=== PATIENT | male | born 1985 | race Caucasian/White ===

== ENCOUNTER 2017-01-03 11:29 | Emergency (ER) | payer SELFPAY ==
[~2017-01-03] VITALS: Ht 167.6 cm; Wt 61.2 kg
[2017-01-03 11:30] VITALS: BP_SYST 139
[2017-01-03] MEDS ORDERED: BACITRACIN 1 GM OINT TP ONE ×2 (12:00→12:08)
[2017-01-03 12:25] VITALS: BP_SYST 139
== END 2017-01-03 12:24 | disposition home or self-care (01) ==
LOC: SED 11:29
DX: T21.22XA Burn of second degree of abdominal wall, initial encounter (principal); T24.212A Burn of second degree of left thigh, initial encounter; T24.211A Burn of second degree of right thigh, initial encounter; X16.XXXA Contact with hot heating appliances, radiators and pipes, initial encounter; Y93.89 Activity, other specified; Y92.89 Other specified places as the place of occurrence of the external cause; Y99.8 Other external cause status
CPT/HCPCS: 99285

== ENCOUNTER 2017-03-24 19:30 | Emergency (ER) | payer OTHER ==
[~2017-03-24] VITALS: Ht 167.6 cm; Wt 59.0 kg
[2017-03-24 19:35] VITALS: BP_SYST 142
[2017-03-24 20:10] VITALS: BP_SYST 142
== END 2017-03-24 20:10 | disposition home or self-care (01) ==
LOC: SED 19:30
DX: S43.102A Unspecified dislocation of left acromioclavicular joint, initial encounter (principal); X58.XXXA Exposure to other specified factors, initial encounter; Y93.89 Activity, other specified; Y92.89 Other specified places as the place of occurrence of the external cause; Y99.8 Other external cause status
CPT/HCPCS: 73030; 99284

== ENCOUNTER 2017-07-25 04:02 | Observation (INO) | payer OTHER ==
[~2017-07-25] VITALS: Ht 170.2 cm; Wt 59.0 kg
[2017-07-25 04:06] VITALS: BP_SYST 148
[2017-07-25] MEDS ORDERED: NACL 0.9% 1,000 ML IV ONE ×3 (04:25→08:00)
[2017-07-25] MEDS ORDERED: KETOROLAC TROMETHAMINE 30 MG VIAL IVP ONE (04:30)
[2017-07-25] MEDS ORDERED: ONDANSETRON HCL 4 MG/2 ML VIAL IVP ONE (04:30)
[2017-07-25 04:41] LABS: BASOPHILS % (AUTO) 0.3 % (0.0-2.0); EOSINOPHILS % (AUTO) 0.5 % (0.0-4.0); HEMATOCRIT 46.4 % (36-54); HEMOGLOBIN 15.1 g/dL (14.0-18.0); LYMPHOCYTES # (AUTO) 1.2 K/uL (1.0-5.5); LYMPHOCYTES % (AUTO) 17.2 % (20.5-51.5); MEAN CORPUSCULAR HEMOGLOBIN 28 pg (27-31); MEAN CORPUSCULAR HGB CONC 33 % (32-36); MEAN CORPUSCULAR VOLUME 85 fL (79.0-98.0); MONOCYTES # (AUTO) 0.4 K/uL (0.0-1.0); MONOCYTES % (AUTO) 5.9 % (1.7-9.3); NEUTROPHILS # (AUTO) 5.5 K/uL (1.8-7.7); NEUTROPHILS % (AUTO) 76.1 % (40.0-70.0); PLATELET COUNT (AUTO) 335 K/uL (130-430); RED BLOOD CELL COUNT(AUTO) 5.43 MIL/uL (4.2-6.2); RED CELL DISTRIBUTION WIDTH 13.7 % (9.0-15.0); WHITE BLOOD COUNT (AUTO) 7.1 K/uL (4.8-10.8)
[2017-07-25 04:42] LABS: CREATININE 0.97 mg/dL (0.55-1.30); POTASSIUM 4.4 mmol/L (3.5-5.1)
[2017-07-25 04:46] LABS: ALBUMIN 4.1 g/dL (3.4-4.8); TOTAL BILIRUBIN 0.5 mg/dL (0.0-1.0)
[2017-07-25 07:04] VITALS: BP_SYST 139
[2017-07-25] MEDS ORDERED: NACL 0.9% 1,000 ML IV SCH (07:55)
[2017-07-25 08:00] VITALS: BP_SYST 148
[2017-07-25] MEDS ORDERED: ONDANSETRON HCL 4 MG/2 ML VIAL IVP PRN (08:00)
[2017-07-25] MEDS ORDERED: MORPHINE 2 MG/ML INJ. SYRINGE IVP PRN (08:00)
[2017-07-25] MEDS ORDERED: ALBUTEROL SULFATE 0.083% 2.5 MG/3 ML VIAL.NEB INH PRN (08:00)
[2017-07-25] MEDS ORDERED: ACETAMINOPHEN 325 MG TABLET PO PRN (08:00)
[2017-07-25 08:31] LABS: BASOPHILS % (AUTO) 0.2 % (0.0-2.0); EOSINOPHILS % (AUTO) 0.2 % (0.0-4.0); HEMATOCRIT 40.7 % (36-54); HEMOGLOBIN 13.4 g/dL (14.0-18.0); LYMPHOCYTES % (AUTO) 14.5 % (20.5-51.5); MEAN CORPUSCULAR HEMOGLOBIN 28 pg (27-31); MEAN CORPUSCULAR HGB CONC 33 % (32-36); MEAN CORPUSCULAR VOLUME 86 fL (79.0-98.0); MONOCYTES # (AUTO) 0.3 K/uL (0.0-1.0); MONOCYTES % (AUTO) 4.8 % (1.7-9.3); NEUTROPHILS # (AUTO) 5.6 K/uL (1.8-7.7); NEUTROPHILS % (AUTO) 80.3 % (40.0-70.0); PLATELET COUNT (AUTO) 299 K/uL (130-430); RED BLOOD CELL COUNT(AUTO) 4.71 MIL/uL (4.2-6.2); RED CELL DISTRIBUTION WIDTH 13.4 % (9.0-15.0); WHITE BLOOD COUNT (AUTO) 6.9 K/uL (4.8-10.8)
[2017-07-25 08:53] LABS: ALBUMIN 3.4 g/dL (3.4-4.8); CREATININE 0.78 mg/dL (0.55-1.30); POTASSIUM 4.3 mmol/L (3.5-5.1); TOTAL BILIRUBIN 0.4 mg/dL (0.0-1.0)
[2017-07-25] MEDS ORDERED: PANTOPRAZOLE SODIUM 40 MG/VIAL (PROTONIX) IVP SCH (09:00)
[2017-07-25] MEDS ORDERED: BISACODYL 5 MG TABLET.DR (DULCOLAX) PO ONE (09:15)
[2017-07-25] MEDS ORDERED: POLYETHYLENE GLYCOL 3350, 17 GM/ POWD.PACK PO ONE (09:15)
[2017-07-25 09:48] VITALS: BP_SYST 148
[2017-07-25] MEDS ORDERED: MORPHINE 4 MG/ML INJ. SYRINGE IVP PRN (10:00)
[2017-07-25 12:00] VITALS: BP_SYST 135
[2017-07-26] MEDS ORDERED: POLYETHYLENE GLYCOL 3350, 17 GM/ POWD.PACK PO SCH (09:00)
== END 2017-07-25 12:22 | disposition left against medical advice (07) ==
LOC: SED 04:02 → SMU 06:28
PROVIDERS: ADMIT Internal Medicine; ATTEND Internal Medicine
DX: K85.90 Acute pancreatitis without necrosis or infection, unspecified (principal); F17.210 Nicotine dependence, cigarettes, uncomplicated
CPT/HCPCS: 36415; 74018; 74176; 76700; 80053; 80061; 82150; 83690; 85025; 87040; 96361 ×2; 96374; 96375 ×2; 99285; C9113; G0378; G0482; J1885; J2405; J7030; J2270

== ENCOUNTER 2018-05-20 18:39 | Emergency (ER) | payer SELFPAY ==
[~2018-05-20] VITALS: Ht 165.1 cm; Wt 63.5 kg
[2018-05-20 18:50] VITALS: BP_SYST 137
[2018-05-20] MEDS ORDERED: BACITRACIN 1 GM OINT TP ONE (19:30)
[2018-05-20] MEDS ORDERED: LIDOCAINE/EPI 2% 1:100000 20 ML VIAL INJ ONE (19:30)
[2018-05-20 20:25] VITALS: BP_SYST 137
== END 2018-05-20 20:25 | disposition home or self-care (01) ==
LOC: SED 18:39
DX: S01.01XA Laceration without foreign body of scalp, initial encounter (principal); W20.8XXA Other cause of strike by thrown, projected or falling object, initial encounter; Y93.89 Activity, other specified; Y92.89 Other specified places as the place of occurrence of the external cause; Y99.8 Other external cause status
CPT/HCPCS: 99283

== ENCOUNTER 2018-05-28 17:17 | Emergency (ER) | payer SELFPAY ==
[~2018-05-28] VITALS: Ht 170.2 cm; Wt 63.5 kg
[2018-05-28 17:30] VITALS: BP_SYST 144
[2018-05-28 18:15] VITALS: BP_SYST 130
== END 2018-05-28 18:15 | disposition home or self-care (01) ==
LOC: SED 17:17
DX: S01.01XD Laceration without foreign body of scalp, subsequent encounter (principal); W20.8XXD Other cause of strike by thrown, projected or falling object, subsequent encounter
CPT/HCPCS: 99281

== ENCOUNTER 2020-02-07 12:22 | Emergency (ER) | payer MEDICAID ==
[~2020-02-07] VITALS: Ht 167.6 cm; Wt 68.0 kg
[2020-02-07 12:26] VITALS: BP_SYST 110
[2020-02-07] MEDS ORDERED: LIDOCAINE 1% 10 MG/ML, 20 ML MDV INJ ONE (12:45)
[2020-02-07 14:29] VITALS: BP_SYST 110
== END 2020-02-07 14:32 | disposition home or self-care (01) ==
LOC: SED 12:22
DX: S62.522A Displaced fracture of distal phalanx of left thumb, initial encounter for closed fracture (principal); S61.012A Laceration without foreign body of left thumb without damage to nail, initial encounter; W26.8XXA Contact with other sharp object(s), not elsewhere classified, initial encounter; Y93.89 Activity, other specified; Y92.89 Other specified places as the place of occurrence of the external cause; Y99.8 Other external cause status
CPT/HCPCS: 12002; 73140; 99283; J2001

== ENCOUNTER 2020-02-10 11:04 | Emergency (ER) | payer MEDICAID ==
[~2020-02-10] VITALS: Ht 167.6 cm; Wt 63.5 kg
[2020-02-10 11:08] VITALS: BP_SYST 128
--- NOTE | 2020-02-10 12:06 | NUR ---
Pt was seen walking out of waiting room. LWBS at this time.
== END 2020-02-10 12:06 | disposition left against medical advice (07) ==
LOC: SED 11:04
DX: Z48.02 Encounter for removal of sutures (principal); Z53.21 Procedure and treatment not carried out due to patient leaving prior to being seen by health care provider

== ENCOUNTER 2021-04-01 18:11 | Emergency (ER) | payer SELFPAY ==
[~2021-04-01] VITALS: Ht 167.6 cm; Wt 68.0 kg
[2021-04-01 19:00] VITALS: BP_SYST 143
--- NOTE | 2021-04-01 19:06 | NUR ---
PT TO REMAIN IN THE ER LOBBY UNTIL ER BED BECOMES AVAILABLE.
--- NOTE | 2021-04-01 19:19 | NUR ---
Patient to ER bed 3 to gown for evaluation. Side rails up.
--- NOTE | 2021-04-01 19:26 | NUR ---
PT WALKED IN C/O RIGHT ELBOW SWELLING XTODAY WORSENING OVER THE LAST FEW HOURS AFTER ICING IT. PT THINKS HE MAY HAVE SLEPT ON IT WRONG OR GOT BITTEN BY SOMETHING. +SWELLING, +TENDERNESS, -REDNESS, +LIMITED ROM.
[2021-04-01] MEDS ORDERED: KETOROLAC TROMETHAMINE 30 MG VIAL IM ONE (19:45)
--- NOTE | 2021-04-01 19:45 | NUR ---
DR. SANTIAGO AT BEDSIDE FOR MSE
--- NOTE | 2021-04-01 20:00 | NUR ---
PT REFUSING PAIN MEDICATION AT THIS TIME.
--- NOTE | 2021-04-01 20:01 | NUR ---
PT NORI TO RADIOLOGY
--- NOTE | 2021-04-01 20:10 | NUR ---
PT BACK FROM XRAY
--- NOTE | 2021-04-01 20:37 | NUR ---
DR. SANTIAGO AT BEDSIDE
[2021-04-01] MEDS ORDERED: IBUPROFEN 800 MG TABLET PO ONE (21:00)
[2021-04-01] MEDS ORDERED: IBUP-1969 PO (21:23)
[2021-04-01 21:45] VITALS: BP_SYST 143
--- NOTE | 2021-04-01 21:45 | NUR ---
Patient given written and verbal discharge instructions and verbalizes understanding. ER MD discussed with patient the results and treatment provided. Patient in stable condition. ID arm band removed. Rx of MOTRIN given. Patient educated on pain management and to follow up with PMD. Pain Scale 3/10. Opportunity for questions provided and answered. Medication side effect fact sheet provided.
== END 2021-04-01 21:45 | disposition home or self-care (01) ==
LOC: SED 18:11
DX: M70.21 Olecranon bursitis, right elbow (principal); Z79.899 Other long term (current) drug therapy; Y93.89 Activity, other specified
CPT/HCPCS: 73080; 99283; J1885

== ENCOUNTER 2021-06-12 12:07 | Emergency (ER) | payer OTHER ==
[~2021-06-12] VITALS: Ht 167.6 cm; Wt 63.5 kg
[~2021-06-12 12:07] MED LIST: IBUP-1969 PO
[2021-06-12 12:25] VITALS: BP_SYST 132
[2021-06-12] MEDS ORDERED: BACITRACIN 1 GM OINT TP ONE (14:45)
[2021-06-12] MEDS ORDERED: LIDOCAINE/EPI 1% 1:100000 20 ML VIAL INJ ONE ×2 (14:45→14:48)
[2021-06-12 15:29] VITALS: BP_SYST 134
== END 2021-06-12 15:29 | disposition home or self-care (01) ==
LOC: SED 12:07
DX: S81.011A Laceration without foreign body, right knee, initial encounter (principal); V49.49XA Driver injured in collision with other motor vehicles in traffic accident, initial encounter; Y93.89 Activity, other specified; Y92.89 Other specified places as the place of occurrence of the external cause; Y99.8 Other external cause status
CPT/HCPCS: 73560-TC; 99283

== ENCOUNTER 2023-05-05 15:24 | Emergency (ER) | payer SELFPAY ==
[~2023-05-05] VITALS: Ht 162.6 cm; Wt 63.5 kg
[2023-05-05 15:25] VITALS: BP_SYST 115; PULSE 99; RESP 18; TEMP 98.7; O2SAT 100
[2023-05-05] MEDS ORDERED: PENI250T2 PO (18:53)
[2023-05-05] MEDS ORDERED: IBUP800T54 PO (18:53)
== END 2023-05-05 18:47 | disposition home or self-care (01) ==
LOC: SED 15:24
DX: K02.9 Dental caries, unspecified (principal); K08.89 Other specified disorders of teeth and supporting structures; Z79.899 Other long term (current) drug therapy
CPT/HCPCS: 99282

== ENCOUNTER 2023-09-05 07:45 | Emergency (ER) | payer SELFPAY ==
[~2023-09-05] VITALS: Ht 167.6 cm; Wt 63.5 kg
[~2023-09-05 07:45] MED LIST changes: +IBUP800T54 PO; +PENI250T2 PO
[2023-09-05 07:49] VITALS: BP_SYST 129; PULSE 82; RESP 18; TEMP 98.3; O2SAT 98
[2023-09-05] MEDS: FAMOTIDINE 20 MG TABLET PO ONE (08:48)
[2023-09-05] MEDS: predniSONE 20 MG TABLET PO ONE (08:48)
[2023-09-05] MEDS ORDERED: METH-776 PO (09:42)
[2023-09-05] MEDS ORDERED: FAMO40TA71 PO (09:42)
[2023-09-05] MEDS ORDERED: DIPH25CA83 PO (09:42)
[2023-09-05 10:00] VITALS: BP_SYST 129; PULSE 82; RESP 18; TEMP 98.3; O2SAT 98
== END 2023-09-05 09:58 | disposition home or self-care (01) ==
LOC: SED 07:45
DX: T78.49XA Other allergy, initial encounter (principal); X58.XXXA Exposure to other specified factors, initial encounter
CPT/HCPCS: 99283; J7512

== ENCOUNTER 2023-09-13 13:43 | Emergency (ER) | payer OTHER ==
[~2023-09-13] VITALS: Ht 162.6 cm; Wt 59.0 kg
[~2023-09-13 13:43] MED LIST changes: +DIPH25CA83 PO; +FAMO40TA71 PO; +METH-776 PO
[2023-09-13 14:14] VITALS: BP_SYST 154; PULSE 97; RESP 18; TEMP 97.5; O2SAT 99
[2023-09-13 19:28] VITALS: BP_SYST 154; PULSE 97; RESP 18; TEMP 97.5; O2SAT 99
== END 2023-09-13 15:54 | disposition left against medical advice (07) ==
LOC: SED 13:43
DX: R22.9 Localized swelling, mass and lump, unspecified (principal); Z53.21 Procedure and treatment not carried out due to patient leaving prior to being seen by health care provider